=== PATIENT | male | born 1970 | race Caucasian/White ===

== ENCOUNTER → 2021-01-10 08:55 | Outpatient (BNVA) | payer MEDICARE, MEDICAID, SELFPAY | PROVIDERS: Family Provider Nurse Practitioner Family; PCP Nurse Practitioner Family; Visit Provider Urology | DX: R79.89 Other specified abnormal findings of blood chemistry (principal); Z12.5 Encounter for screening for malignant neoplasm of prostate | CPT/HCPCS: 81003; 84403; G0103 ==

== ENCOUNTER 2022-04-03 15:18 | Emergency (ER) | payer MEDICARE, MEDICAID, SELFPAY ==
[2022-04-03 15:23] VITALS: BP 132/84; PULSE 55; RESP 16; TEMP 36.5; O2SAT 95; BMI 39.0
--- NOTE | 2022-04-03 15:39 | W.ED.EXTPRO ---
HPI - Extremity Problem General: Chief complaint: Extremity Injury, Lower Stated complaint: r knee pain, sent by Downs Time Seen by Provider: 04/03/22 15:36 History of Present Illness: Patient is a 51-year-old male who comes to the ED with right knee pain. Patient states that he was running on his treadmill about a week ago and he thinks he overdid it and that is why he is having right knee pain. He went and saw his PCP and they did an x-ray and it showed no acute fractures or findings. His PCP is in the process of getting him set up with an outpatient MRI of the knee. Associated symptoms: Deny chest pain, fever(s) or rash Review of Systems Const: Denies: fever(s), chills or fatigue Eyes: Denies: change in vision or eye discomfort ENMT: Denies: throat pain, odynophagia, nasal discharge or nasal congestion Card: Denies: chest pain, palpitations, edema, swelling of feet/ankles, dyspnea on exertion or orthopnea Resp: Denies: dyspnea, productive cough or non-productive cough GI: Denies: abdominal pain, nausea, vomiting, diarrhea, constipation or hematochezia : Denies: flank pain, difficulty urinating, dysuria or hematuria Musc: Reports: extremity pain (Right ankle pain); Denies: neck pain, back pain or extremity swelling Skin/Breast: Denies: rash or new lesions Neuro: Denies: headache(s), numbness in extremities or weakness in extremities PFS ED PFSH: Medical History Abdominal pain Degenerative lumbar spinal stenosis Depression Erectile dysfunction GERD (gastroesophageal reflux disease) History of gastric ulcer Hypersomnia Hypertension Intervertebral disc disease Low testosterone Morbid obesity Surgical History History of esophagogastroduodenoscopy (EGD) (~2016) dr. del rio- ulcer present Family History Mother , AT AGE 65 of unknown cause Social History Smoking and tobacco status: current every day smoker Alcohol intake: never Marital status: Current occupational status: disabled History of recent travel: No Susu/Islam: None Physical Exam Const: COMMON NORMALS: no acute distress, patient oriented x3 and alert HENMT: COMMON NORMALS: normocephalic HEAD & SCALP: normocephalic MOUTH: Normal oral and palatal mucosa present THROAT: posterior oropharynx normal and uvula midline Neck/C-Spine: COMMON NORMALS: supple GENERAL: Yes normal visual inspection Resp: COMMON NORMALS: normal respiratory effort, No retractions, No use of accessory muscles and clear to auscultation bilaterally AUSCULTATION: clear to auscultation bilaterally Cardio: COMMON NORMALS: regular rate, regular rhythm, S1 normal heart sound present, S2 normal heart sound present, No gallops present (Cardio), No clicks present (Cardio), No murmurs present (Cardio) and Peripheral pulses 2+ throughout RATE: regular rate RHYTHM: regular rhythm HEART SOUNDS: S1 normal heart sound present and S2 normal heart sound present PERIPHERAL PULSES: Peripheral pulses 2+ throughout GI: COMMON NORMALS: Normal to inspection, nondistended, normoactive bowel sounds present, Soft to palpation, non-tender and no masses PALPATION: Yes Soft to palpation : COMMON NORMALS: Yes no CVA tenderness BLADDER/KIDNEY EXAM: Yes no CVA tenderness Back/Pelvis: COMMON NORMALS: no CVA tenderness Extremity: COMMON NORMALS: normal to inspection Neuro: COMMON NORMALS: patient oriented x3 SENSORIUM/ORIENTATION: Yes alert GAIT: Yes Normal gait present Skin: GENERAL SKIN EXAM: dry skin Course Vital Signs: Vital signs: Vital Signs Temperature 97.7 F 04/03/22 15:23 Pulse Rate 81 04/03/22 16:12 Respiratory Rate 20 H 04/03/22 16:12 Blood Pressure 132/84 04/03/22 15:23 Pulse Oximetry 99 04/03/22 16:12 Oxygen Delivery Me thod 04/03/22 15:23 MDM - Extremity (Nontraumatic) Medical Decision Making Patient is a 51-year-old male who comes to the ED with right knee pain. Patient states that he was running on his treadmill about a week ago and he thinks he overdid it and that is why he is having right knee pain. He went and saw his PCP and they did an x-ray and it showed no acute fractures or findings. His PCP is in the process of getting him set up with an outpatient MRI of the knee. Vitals are stable. Patient has already had an x-ray done of his right knee in the past couple days showed no acute findings. I told patient that he will not be able to get an MRI done of his knee here in the ED and will have to have an outpatient MRI. He has an orthopedic doctor in [place] that he wants to see. He was stable for discharge home and diagnosed with with pain in right knee. Patient understood and agreed with plan. Discharge Plan Discharge Patient Disposition: Home Clinical Impression: Pain in right knee Qualifiers: Chronicity: acute Qualified Code(s): M25.561 - Pain in right knee Condition: Stable Prescriptions: No Action atorvastatin 10 mg tablet 10 mg PO DAILY sucralfate 1 gram tablet 1 g PO QID bupropion HCl 300 mg tablet extended release 24 hr 300 mg PO QAM pantoprazole 40 mg tablet,delayed release (DR/EC) 40 mg PO DAILY famotidine 20 mg tablet 10 mg PO DAILY escitalopram oxalate 10 mg tablet 20 mg PO DAILY metoprolol tartrate 25 mg tablet 25 mg PO BID omega-3 fatty acids 500 mg capsule 500 mg PO BID TUMERIC CURCUMIN PO arginine (L-arginine) 500 mg capsule 1,000 mg PO BID mecobalamin (vitamin B12) 1,000 mcg tablet,chewable 1,000 mcg PO DAILY tadalafil 20 mg tablet 20 mg PO DAILY PRN (Reason: sexual activity) Qty: 30 6RF Rx Instructions: take 30min before sexual activity; do not use more than 1 dose per 24hrs, NO NITROGLYCERIN Discharge Orders: Discharge ED (Routine); Ordered 04/03/22 Ordered By: Franco Santiago Referrals: Zakiya Downs FNP [Primary Care Provider] - Discharge Diet: Regular Discharge Activity: Increase activity as tolerated Activity Restrictions/Additional Instructions: Follow-up with medical provider as directed. Continue taking home medications as previously prescribed. return to the ER or your medical provider if condition worsens. Please read and understand discharge instructions. Thank you for choosing [facility] for your healthcare needs today. Please realize this is an emergency room and that we are providing you with a medical screening exam and this may not be complete and all inclusive of all the testing and or work up that you may need to determine your ailment or severity of your illness. It is very important that you follow up as instructed or that you return to the Emergency Department should you have concerns or if your condition changes or worsens in any way. Coding Level of Care Code ED Parachutist/Combatant Diver Qualified for Zohra Fwrigo Exam Comprehensive
[2022-04-03 16:12] VITALS: PULSE 81; RESP 20; O2SAT 99
== END 2022-04-03 16:13 | disposition home or self-care (01) ==
PROVIDERS: Emergency Provider Physician Assistant; PCP Nurse Practitioner Family
DX: M25.561 Pain in right knee (principal)
CPT/HCPCS: 99283

== ENCOUNTER 2023-10-05 13:33 | Outpatient (CLI) | payer MEDICARE, SELFPAY ==
--- NOTE | 2023-10-05 13:54 | MR_ITS ---
WS: [id number] MRI RIGHT KNEE NONCONTRAST TECHNIQUE: Axial PD, coronal PD fat sat, coronal PD, sagittal PD, and sagittal PD fat-sat images obta ined. CLINICAL INFORMATION: PAIN IN R KNEE/INTERNAL DERANGEMENT OF R KNEE COMPARISON: None. FINDINGS: Distal quadriceps and patellar tendons are intact. Hypertrophic patella. ACL and PCL appear intact. C hronic thinning of the medial meniscus. Diffuse edema likely due to contusion involving the anterior medial femoral condyle. Recommend correlation with history of trauma. Horizontal tear involving the p osterior horn medial meniscus extending to the articular surface. Lateral meniscus appears intact. Moderate chondromalacia patella. Medial and lateral patellar retinaculum are intact. Medial and later al collateral ligaments are intact. Normal popliteus. Head of the fibula appears normal. MR/MR knee RT wo con* [id number] IMPRESSION: 1. Normal ACL and PCL. 2. Diffuse edema involving the anteromedial femoral condyle likely due to cont usion. Recommend correlation with recent trauma. 3. Horizontal tear involving the posterior horn medial meniscus extending to t he articular surface. 4. Moderate chondromalacia patella. Outbridge grading: grade III: partial-thickness cartilage loss with focal ulcer ation
== END 2023-10-05 13:34 | disposition home or self-care (01) ==
PROVIDERS: PCP Nurse Practitioner Family; Visit Provider Nurse Practitioner Family
DX: S83.241A Other tear of medial meniscus, current injury, right knee, initial encounter (principal); M25.461 Effusion, right knee; M22.41 Chondromalacia patellae, right knee
CPT/HCPCS: 73721